=== PATIENT | male | born 1950 | race Caucasian/White ===

== ENCOUNTER 2017-06-22 12:14 | Inpatient (IN) ==
[2017-06-22] MEDS ORDERED: ZOFRAN IV PRN (14:21)
[2017-06-22] MEDS ORDERED: TYLENOL PO PRN ×2 (14:21→19:43)
[2017-06-22] MEDS: NS 1,000 ML IV SCH ×2 (15:00→22:14)
[2017-06-22] MEDS: FLAGYL 500 MG/NS 500 MG/100 ML IVPB IV SCH ×2 (15:01→19:59)
[2017-06-22] MEDS: LOVENOX SUBQ SCH (15:03)
[2017-06-22] MEDS: LEVAQUIN 750 MG/D5W 750 MG/150 ML IVPB IV SCH (15:04)
[2017-06-22 18:29] LABS: MANUAL DIFF NEEDED? NO
[2017-06-22 18:34] LABS: BASO% 0.2 % (0.0-0.8); EOS# 0.12 X1000 (0.0-0.7); EOS% 1.4 % (0.0-10.0); HEMOGLOBIN 14.5 g/dL (14.0-18.0); IMM GRAN# 0.02 X1000 (0.0-0.04); IMM GRAN% 0.2 % (0.0-0.5); LYMPH# 2.18 X1000 (1.2-3.4); LYMPH% 26.1 % (20.5-51.1); MCH 30.7 PG (27-31); MCHC 34.5 g/dL (33-37); MONO# 0.61 X1000 (0.11-0.59); MONO% 7.3 % (1.7-9.3); NEUT% 64.8 % (42.2-75.2); PLT 218 X1000 (130-400); RBC 4.72 XMIL (4.7-6.1)
[2017-06-22 18:54] LABS: AGAP 13; AMYLASE 29 U/L (20-200); BUN 15 mg/dL (8-22); CALCIUM 8.7 mg/dL (8.8-10.2); CHLORIDE 99 mmol/L (98-107); COSMO 274; LIPASE 11 U/L (13-60); SODIUM 137 mmol/L (136-145); TCO2 25 mmol/L (25-35)
[2017-06-22 19:03] LABS: ALBUMIN 4.1 g/dL (3.5-5.0); DIRECT BILIRUBIN 0.2 mg/dL (0.00-0.20); TOTAL BILIRUBIN 1.51 mg/dL (0.20-1.00); TOTAL PROTEIN 6.5 g/dL (6.3-8.3)
[2017-06-22] MEDS: ZOCOR PO SCH (19:59)
[2017-06-23] MEDS: FLAGYL 500 MG/NS 500 MG/100 ML IVPB IV SCH ×4 (02:25→21:42)
[2017-06-23] MEDS: SYNTHROID PO SCH (06:04)
[2017-06-23] MEDS: PRILOSEC PO SCH (06:04)
[2017-06-23] MEDS: NS 1,000 ML IV SCH ×2 (06:04→16:13)
--- NOTE | 2017-06-23 09:08 | Diag Imaging Result Doc PS360 ---
EXAM: CT ABDOMEN/PELVIS W/WO CONTRAS - 06/23/2017 HISTORY: severe LLQ PAIN with rebound TECHNIQUE: With oral contrast. Without and with intravenous contrast. Dose reduction protocol. COMPARISON: None. FINDINGS: The visualized lung bases appear clear except for mild dependent atelectasis. There are no substantial abnormalities of the liver, spleen, adrenal glands, or pancreas identified. The gallbladder surgically absent. The bilateral kidneys enhance homogeneously. There is no hydronephrosis. There are nonspecific small retroperitoneal lymph nodes. There is no evidence of bowel obstruction. The appendix is unremarkable. There is colonic diverticulosis which is most extensive at the sigmoid and distal descending colon. There is inflammation of the proximal sigmoid colon with wall thickening at infiltration of pericolic fat. This is suspicious for diverticulitis. There is no abscess identified. There is no free air identified. IMPRESSION: Diverticulitis at proximal sigmoid colon. No evidence of abscess. No free air. Results were discussed in person with Dr. Paniagua at 8:47 AM on 06/23/2017. Electronically signed by Epifanio Mcleod 06/23/2017 9:05 AM
[2017-06-23] MEDS: PRINIVIL PO SCH (09:32)
[2017-06-23] MEDS: ASPIRIN PO SCH (09:32)
[2017-06-23] MEDS: LEVAQUIN 750 MG/D5W 750 MG/150 ML IVPB IV SCH (16:00)
[2017-06-23] MEDS: LOVENOX SUBQ SCH (16:13)
[2017-06-23] MEDS: ACTOS PO SCH (18:28)
[2017-06-23] MEDS: ZOCOR PO SCH (21:42)
[2017-06-23] MEDS ORDERED: BENADRYL PO ONE (23:27)
[2017-06-24] MEDS: NS 1,000 ML IV SCH (00:38)
[2017-06-24] MEDS: FLAGYL 500 MG/NS 500 MG/100 ML IVPB IV SCH (05:04)
[2017-06-24] MEDS: PRILOSEC PO SCH (06:11)
[2017-06-24] MEDS: SYNTHROID PO SCH (06:11)
[2017-06-24 07:43] VITALS: BP 108/73
[2017-06-24] MEDS ORDERED: PHENERGAN PO PRN (08:18)
[2017-06-24] MEDS ORDERED: FLAGYL PO SCH (09:00)
[2017-06-24] MEDS ORDERED: LEVAQUIN PO SCH (09:00)
[2017-06-24] MEDS: ACTOS PO SCH (09:06)
[2017-06-24] MEDS: ASPIRIN PO SCH (09:06)
[2017-06-24] MEDS: PRINIVIL PO SCH (09:07)
== END 2017-06-24 09:51 | disposition home or self-care (01) ==
LOC: DIRADM 12:14 → 3N 14:09
PROVIDERS: ADMIT Internal Medicine; ATTEND Internal Medicine